=== PATIENT | male | born 1940 | race Caucasian/White ===

== ENCOUNTER 2019-03-08 05:43 | Observation (INO) | payer MEDICARE, OTHER ==
[~2019-03-08] VITALS: Ht 188 cm; Wt 85.0 kg
[2019-03-08] VITALS (32 sets, daily range): BP systolic 107–171; BP diastolic 57–80; PULSE 46–65; RESP 4–30; Ht 188 cm; Wt 85.0 kg
[~2019-03-08 05:43] MED LIST: APIX5TAB PO; ATOR10TA65 PO; BUDE6HFA INHALATION; HYDR-4011 PO
[2019-03-08] MEDS ORDERED: CEFAZOLIN 1 GM/50 ML (PMX) 50 ML IVPB SCH (07:00)
[2019-03-08] MEDS ORDERED: SOD CHLORIDE 0.45% 1,000 ML IV SCH (07:00)
[2019-03-08] MEDS ORDERED: DIAZEPAM 5 MG TAB PO SCH (07:00)
[2019-03-08] MEDS ORDERED: LIDOCAINE 1%/EPI 30 ML INJ ONE (07:18)
[2019-03-08] MEDS ORDERED: CEFAZOLIN 1 GM/50 ML (PMX) 50 ML IVPB ONE ×2 (07:27→07:46)
[2019-03-08] MEDS ORDERED: SOD CHLORIDE 0.9% 500 ML ONE (07:27)
--- NOTE | 2019-03-08 07:27 | PREAC ---
Date/Time of Note Date/Time of Note DATE: 03/08/19 TIME: 07:27 Anesthesia Eval and Record Evaluation Time Pre-Procedure Interview DATE: 03/08/19 TIME: 07:27 Age 79 Sex male NPO: 8 hrs Preoperative diagnosis tachy paroxysmal A fib Planned procedure permanent pace maker placement Past Medical History Past Medical History: Includes Cardio: Dyslipidemia Endo: Diabetes Pulm: COPD Renal: BPH Surgery & Anesthesia Issues No known issue Meds Anticoagulation: Yes (4 days ago) Beta Codie within 24 hr: No Reason Beta Codie not given: Pt. not on B-Codie Reported Medications Budesonide-Formoterol Fumarate* (Symbicort*) 160-4.5 Hfa.aer.ad, 2 PUFF INHALATION BID, #1 EACH 03/08/19 Atorvastatin Calcium (Atorvastatin Calcium) 10 Mg Tablet, 10 MG PO QHS, #30 TAB 03/08/19 Apixaban* (Eliquis*) 5 Mg Tablet, 5 MG PO BID, TAB 03/08/19 Current Medications Sodium Chloride 1,000 ml @ 0 mls/hr Q0M IV ; Start 03/08/19 at 07:00; Stop 03/08/19 at 12:00 Diazepam (Valium) 5 mg PRE-OP PO Last administered on 03/08/19at 07:11; Admin Dose 5 MG; Start 03/08/19 at 07:00; Stop 03/08/19 at 12:00 Cefazolin Sodium 50 ml @ 100 mls/hr PRE-OP IVPB ; Start 03/08/19 at 07:00; Stop 03/08/19 at 12:00 Bacitracin/ Polymyxin B Sulfate (Pb Solution) 1,000 ml ONCE IRR ; Start 03/08/19 at 07:30; Stop 03/08/19 at 12:00 Meds reviewed: Yes Allergies Coded Allergies: erythromycin base (Verified Allergy, Unknown, 03/08/19) Allergies Reviewed: Yes Labs/Studies Labs Reviewed: Reviewed by anesthesiologist Result Diagram: 03/08/1915 03/08/19 0615 Laboratory Tests 03/08/19 06:15 test: N/A Studies: ECG (Afib), CXR (pulmonary hyperinflation,emphysemia) Pre-procedure Exam Last vitals Vital Signs Date Temp Pulse Resp B/P (MAP) Pulse Ox O2 O2 Flow FiO2 Time Delivery Rate 03/08/19 98.0 46 17 107/57 95 Room Air 06:44 (74) Airway: Adequate mouth opening Mallampati: Mallampati I Teeth: Normal Lung: Normal Heart: Normal ASA Physical Status ASA physical status: 3 Emergency: None Planned Anesthetic General/MAC: MAC Planned Pain Management Parenteral pain med Pre-operative Attestations Prior to commencing anesthesia and surgery, the patient was re-evaluated, there was verification of: *The patient's identity *The results of appropriate recent lab work and preoperative vital signs *The above evaluation not changing prior to induction *Anesthetic plan, risk benefits, alternative and complications discussed with patient/family; questions answered; patient/family understands, accepts and wishes to proceed. SHELTON PEMBERTON MD Mar 08, 2019 07:27
[2019-03-08] MEDS ORDERED: POLYMYXIN/BACITRACIN 1L IRRIG IRR SCH (07:30)
[2019-03-08] MEDS ORDERED: PROPOFOL 40 ML ONE (07:38)
[2019-03-08] MEDS ORDERED: FENTAnyl 50 MCG/ML VIAL ONE (07:38)
[2019-03-08] MEDS ORDERED: EPHEDrine 25 MG/5 ML SYG ONE (07:38)
[2019-03-08] MEDS ORDERED: MIDAZOLAM 1 MG/ML 2 ML INJ ONE (07:47)
[2019-03-08] MEDS ORDERED: HYDROmorphONE 1 MG/5 ML IV SYRINGE IV PRN ×3 (08:00)
[2019-03-08] MEDS ORDERED: MEPERIDINE 25 MG INJ IV PRN (08:00)
[2019-03-08] MEDS ORDERED: ONDANSETRON 4 MG INJ IV PRN ×2 (08:00→12:00)
[2019-03-08] MEDS ORDERED: FENTAnyl 50 MCG/ML VIAL IV PRN ×3 (08:00)
[2019-03-08] MEDS ORDERED: DIPHENHYDRAMINE 50 MG INJ IV PRN (08:00)
[2019-03-08] MEDS ORDERED: LABETALOL HCL 20MG INJ IV PRN (08:00)
[2019-03-08] MEDS ORDERED: EPHEDrine 25 MG/5 ML SYG IV PRN (08:00)
[2019-03-08] MEDS ORDERED: OXYCODONE/ACETAMINOPHEN (5/325) TAB PO PRN ×2 (08:00)
[2019-03-08] MEDS ORDERED: hydrALAzine 20 MG INJ IV PRN ×2 (08:00→12:00)
--- NOTE | 2019-03-08 08:30 | SIPON ---
Date/Time of Note Date/Time of Note DATE: 03/08/19 TIME: 08:28 Operative Report Preoperative Diagnosis symptomatic checo. h/o a. fib with tachy checo # [id number] Postoperative Diagnosis same Operation/Procedure Performed DDD [facility] pacer at 60 Surgeon see signature line insurance assistant none Anesthesia: MAC Estimated blood loss: minimal Transfusion Required none Specimen none Grafts/Implants none Complications none KIMBERLY SÁNCHEZ MD Mar 08, 2019 08:29
[2019-03-08] MEDS ORDERED: morphine 2 MG INJ IV PRN (09:00)
[2019-03-08] MEDS ORDERED: HYDROCODONE/APAP (5/325) TAB PO PRN (09:00)
--- NOTE | 2019-03-08 10:33 | SP ---
DATE OF PROCEDURE: 03/08/2019 REFERRING PHYSICIAN: Dr. García. REASON FOR IMPLANTATION: Symptomatic bradycardia, tachybrady syndrome, atrial fibrillation. PROCEDURE PERFORMED: Dual chamber pacemaker placement. INDICATION: A dual chamber placement as patient will benefit from AV synchrony. He is a patient who is ambulatory also hopefully it will help to maintain him in atrial fibrillation. DEVICE INFORMATION: The implanted device is [employer], serial #[id number]. Atrial lead is [employer] Tendril 2088 TC 52 cm, serial number [id number]. RV lead is [facility] [facility] [employer] Tendril 2088 TC 58 cm lead, serial number [id number]. Acute thresholds atrial wave is 1.5 millivolts, impedance 4 60 ohms, threshold 1.25 volts at 0.4 msec. RV lead is 4.5 volts, lead impedance 460 ohms, threshold 0.5 volts at 0.47 msec. DESCRIPTION OF PROCEDURE: The informed consent was obtained, the patient was brought into labor training manager i n a fasting condition. Anesthesiologist supervised airway and sedation. Antibiotics were given prio r to medication. The left side of the chest was prepped and draped in a sterile fashion using local lidocaine injection was given for local analgesia. Using #10 scalpel, a 3 cm incision was made and u sing cautery and blunt dissection, the pocket was created, using modified simple Seldinger technique, subclavian was cannulated and J-wire passed easily. Using split sheath technique, 2 J-wires were in troduced and then RV lead was deposited into RV apex over a 6-Irish sheath. A sleeve was actively f ixed into the apex. Some slack was left inside the lead and the sheath was pulled away. The lead wa s sutured to the muscle layer with 0 Ethibond sutures. Then, in a similar position, atrial lead was deposited in the right atrial appendage. It was actively fixed. The sheath was pulled away and the lead was sutured to the muscle layer with 0 Ethibond. The leads were attached to the generator. The pocket was irrigated with antibiotic solution. Entire system was closed inside the pocket, the skin was dressed. The patient appears to have tolerated the procedure well. He is going to be monitored overnight. Chest x-ray will be to follow. Continue antibiotics. I would like to thank Dr. García for referring this patient for my evaluation. Dictated By: KIMBERLY RUSSELL/BETTY Conf#: [id number] DID#: [id number]
--- NOTE | 2019-03-08 11:51 | HP ---
Date/Time of Note Date/Time of Note DATE: 03/08/19 TIME: 11:47 Assessment/Plan VTE Prophylaxis Risk score (from Ns)>0 risk: 5 SCD applied (from Ns): Yes Pharmacological prophylaxis: NA/contraindicated Pharm contraindication: surgical contra Lines/Catheters IV [facility]from [facility] Peripheral IV Assessment/Plan Hospital Course SUBJECTIVE: Lying in bed comfortably. No acute distress. OBJECTIVE: Vital signs-see below PHYSICAL EXAM: Constitutional: Adequately built,not in acute distress. HEENT: Head atraumatic and normocephalic. Eyes: Extraocular muscles intact. Anicteric sclerae. Pupils equal bilaterally, reactive to light. NECK: Supple without lymph node. CHEST: Left chest with pacemaker placed, dressing C/D/I. Clear and good breath sounds equally. No wheezing. No rhonchi. HEART: S1, S2. Regular rate and rhythm. ABDOMEN: Soft/non tender with no rebound tenderness. Bowel sounds were present. EXTREMITIES: No cyanosis, clubbing or edema. NEUROLOGIC: Alert and oriented x3. No focal deficit. No sensory deficit. PSYCHOSOCIAL: No signs of depression. INTEGUMENTARY: No open wounds. ASSESSMENT AND PLAN:79-year-old male with a history of dyslipidemia, diabetes managed with diet, COPD, was brought in by Dr. Fernández for dual-chamber pacemaker placement for symptomatic bradycardia/tachycardia bradycardia syndrome/atrial fibrillation. Symptomatic bradycardia/tachycardia bradycardia syndrome/atrial fibrillation -Status post dual-chamber pacemaker placed 03/08/2019, [facility] -Postop management per cardiology. -Postop Ancef x24 hours and will determine the need for oral Keflex if needed. -Left arm sling -Hold anticoagulation over 24 to 48 hours. DM2 -Managed with diet. Obtain A1c. -Basal/bolus insulin to keep blood sugar under desired goal range to prevent postop infections. Dyslipidemia -Resume statin DVT prophylaxis: SCDs PUD prophylaxis: H2 blockers Approximately 60 m spent on this history and physical. Patient was seen in collaboration with Dr. Hendricks. Result Diagram: 03/08/19 0615 03/08/19 0615 Results 24hrs Laboratory Tests Test 03/08/19 06:11 03/08/19 06:15 Bedside Glucose 129 White Blood Count 5.5 Red Blood Count 4.16 L Hemoglobin 13.6 L Hematocrit 40.5 L Mean Corpuscular Volume 97.4 Mean Corpuscular Hemoglobin 32.7 Mean Corpuscular Hemoglobin Concent 33.6 Red Cell Distribution Width 12.3 Platelet Count 171 Mean Platelet Volume 10.3 Immature Granulocytes % 0.200 Neutrophils % 53.9 Lymphocytes % 34.1 Monocytes % 9.5 Eosinophils % 1.8 Basophils % 0.5 Nucleated Red Blood Cells % 0.0 Immature Granulocytes # 0.010 Neutrophils # 3.0 Lymphocytes # 1.9 Monocytes # 0.5 Eosinophils # 0.1 Basophils # 0.0 Nucleated Red Blood Cells # 0.0 Prothrombin Time 13.9 Prothrombin Time Ratio 1.1 INR International Normalized Ratio 1.06 Activated Partial Thromboplast Time 27.3 Sodium Level 142 Potassium Level 3.9 Chloride Level 104 Carbon Dioxide Level 32 H Anion Gap 6 Blood Urea Nitrogen 16 Creatinine 0.93 Est Glomerular Filtrat Rate mL/min Glucose Level 135 Calcium Level 9.6 Total Bilirubin 0.8 Direct Bilirubin 0.00 Indirect Bilirubin 0.8 Aspartate Amino Transf (AST/SGOT) 30 Alanine Aminotransferase (ALT/SGPT) 40 Alkaline Phosphatase 86 Total Protein 7.6 Albumin 4.3 Globulin 3.30 H Albumin/Globulin Ratio 1.30 HPI/ROS Admit Date/Time Admit Date/Time Hx of Present Illness This is a 79-year-old male with a history of dyslipidemia, diabetes managed with diet, COPD, was brought in by Dr. Fernández for dual-chamber pacemaker placement for symptomatic bradycardia/tachycardia bradycardia syndrome/atrial fibrillation. Patient underwent [facility] implanted dual-chamber pacemaker on 03/08/2019. Postoperatively, patient denied chest pain, palpitation, shortness of breath, nausea, dizziness, vomiting, headache, abdominal pain, loss of consciousness, numbness, tingling, palpitation, speech difficulties, vision changes or other constitutional symptoms. Vital signs stable except for blood pressure 153/72. Labs stable. ROS A 12 point review of system was assessed and is negative other than what is mentioned in HPI. PMH/Family/Social Past Medical History See HPI Medications Current Medications Sodium Chloride 1,000 ml @ 0 mls/hr Q0M IV ; Start 03/08/19 at 07:00; Stop 03/08/19 at 12:00 Diazepam (Valium) 5 mg PRE-OP PO Last administered on 03/08/19at 07:11; Admin Dose 5 MG; Start 03/08/19 at 07:00; Stop 03/08/19 at 12:00 Cefazolin Sodium 50 ml @ 100 mls/hr PRE-OP IVPB ; Start 03/08/19 at 07:00; Stop 03/08/19 at 12:00 Bacitracin/ Polymyxin B Sulfate (Pb Solution) 1,000 ml ONCE IRR ; Start 03/08/19 at 07:30; Stop 03/08/19 at 12:00 Hydromorphone HCl (Dilaudid) 0.2 mg PACU PRN IV MILD PAIN 1-3; Start 03/08/19 at 08:00; Stop 03/08/19 at 13:00 Hydromorphone HCl (Dilaudid) 0.4 mg PACU PRN IV MOD PAIN 4-6 Last administered on 03/08/19at 10:07; Admin Dose 0.4 MG; Start 03/08/19 at 08:00; Stop 03/08/19 at 13:00 Hydromorphone HCl (Dilaudid) 0.6 mg PACU PRN IV SEVERE PAIN 7-10; Start 03/08/19 at 08:00; Stop 03/08/19 at 13:00 Fentanyl (Sublimaze) 25 mcg PACU ORDER PRN IV MILD PAIN 1-3; Start 03/08/19 at 08:00; Stop 03/08/19 at 13:00 Fentanyl (Sublimaze) 50 mcg PACU ORDER PRN IV MOD PAIN 4-6; Start 03/08/19 at 08:00; Stop 03/08/19 at 13:00 Fentanyl (Sublimaze) 75 mcg PACU ORDER PRN IV SEVERE PAIN 7-10; Start 03/08/19 at 08:00; Stop 03/08/19 at 13:00 Oxycodone/ Acetaminophen (Percocet (5/ 325)) 1 tab PACU ORDER PRN PO .PAIN 1-5; Start 03/08/19 at 08:00; Stop 03/08/19 at 13:00 Oxycodone/ Acetaminophen (Percocet (5/ 325)) 2 tab PACU ORDER PRN PO .PAIN 6-10; Start 03/08/19 at 08:00; Stop 03/08/19 at 13:00 Ondansetron HCl (Zofran Inj) 4 mg PACU ORDER PRN IV NAUSEA/VOMITING; Start 03/08/19 at 08:00; Stop 03/08/19 at 13:00 Labetalol HCl (Labetalol) 5 mg PACU ORDER PRN IV HIGH BLOOD PRESSURE; Start 03/08/19 at 08:00; Stop 03/08/19 at 13:00 Hydralazine HCl (Apresoline) 5 mg PACU ORDER PRN IV HIGH BLOOD PRESSURE; Start 03/08/19 at 08:00; Stop 03/08/19 at 13:00 Ephedrine Sulfate 5 mg PACU ORDER PRN IV BLOOD PRESSURE SUPPORT; Start 03/08/19 at 08:00; Stop 03/08/19 at 13:00 Meperidine HCl (Demerol) 25 mg PACU ORDER PRN IV .RIGORS; Start 03/08/19 at 08:00; Stop 03/08/19 at 13:00 Diphenhydramine HCl (Benadryl) 25 mg PACU ORDER PRN IV .PRURITUS; Start 03/08/19 at 08:00; Stop 03/08/19 at 13:00 Cefazolin Sodium 50 ml @ 100 mls/hr Q8 IVPB ; Start 03/08/19 at 14:00 Morphine Sulfate (morphine) 2 mg Q3H PRN IV SEVERE PAIN LEVEL 7-10; Start 03/08/19 at 09:00 Acetaminophen/ Hydrocodone Bitart ([place] (5/325)) 1 tab Q6H PRN PO MODERATE PAIN LEVEL 4-6; Start 03/08/19 at 09:00 IV Flush (NS 3 ml) 3 ml PER PROTOCOL IV ; Start 03/08/19 at 12:00 Ondansetron HCl (Zofran Inj) 4 mg Q6H PRN IV NAUSEA/VOMITING; Start 03/08/19 at 12:00 Acetaminophen (Tylenol Tab) 650 mg Q6H PRN PO .PAIN 1-3 OR TEMP; Start 03/08/19 at 12:00 Docusate Sodium (Colace) 100 mg Q12H PRN PO .CONSTIPATION; Start 03/08/19 at 12:00 Famotidine (Pepcid) 20 mg Q12 PO ; Start 03/08/19 at 21:00 Miscellaneous Information (* Miscellaneous Pharmacy Order) Discontinue current oral sulfonylur... ONCE ONCE XX ; Start 03/08/19 at 12:00; Stop 03/08/19 at 12:01; Status UNV Diagnostic Test (Pha) (Accu-Chek) 1 ea XX ; Start 03/09/19 at 02:00; Status UNV Miscellaneous Information (* Miscellaneous Pharmacy Order) HYPOGLYCEMIA PROTOCOL w... ONCE ONCE XX ; Start 03/08/19 at 12:00; Stop 03/08/19 at 12:01; Status UNV Insulin Aspart (Novolog Insulin Pen) NOVOLOG *MILD* ALGORITHM WITH MEALS BEDTIME SC ; Start 03/08/19 at 12:00; Status UNV Miscellaneous Information (* Miscellaneous Pharmacy Order) Discontinue all previ... ONCE ONCE XX ; Start 03/08/19 at 12:00; Stop 03/08/19 at 12:01; Status UNV Insulin Glargine (Lantus) 10 units DAILY@0800 SC ; Start 03/08/19 at 12:00; Status UNV Coded Allergies: erythromycin base (Verified Allergy, Unknown, 03/08/19) Past Surgical History See HPI Social History Denied history of alcohol, smoking or illicit drug use. Smoking Status: Never smoker Exam/Review of Systems Vital Signs Vitals Vital Signs Date Temp Pulse Resp B/P (MAP) Pulse Ox O2 O2 Flow FiO2 Time Delivery Rate 03/08/19 14 153/72 99 Room Air 09:29 (99) 03/08/19 97.5 57 08:41 WESLEY PATTERSON NP Mar 08, 2019 11:51
[2019-03-08] MEDS ORDERED: DOCUSATE SODIUM 100 MG CAP PO PRN (12:00)
[2019-03-08] MEDS ORDERED: GLUCOSE GEL 15 GRAM TUBE PO PRN ×2 (12:00)
[2019-03-08] MEDS ORDERED: ACETAMINOPHEN 325 MG TAB PO PRN (12:00)
[2019-03-08] MEDS ORDERED: GLUCOSE GEL 15 GRAM TUBE BUCCAL PRN (12:00)
[2019-03-08] MEDS ORDERED: GLUCAGON 1 MG INJ IM PRN (12:00)
[2019-03-08] MEDS ORDERED: NACL 0.9% 3 ML SYG IV SCH (12:00)
[2019-03-08] MEDS ORDERED: DEXTROSE 50% 50 ML SYRINGE IV PRN ×2 (12:00)
[2019-03-08] MEDS: CEFAZOLIN 1 GM/50 ML (PMX) 50 ML IVPB SCH ×2 (17:00→21:46)
[2019-03-08] MEDS: INSULIN GLARGINE [LANTus] (100 UNITS/ML) SYG SC SCH (17:38)
[2019-03-08] MEDS: INSULIN ASPART [NOVOLOG] 3 ML PEN SC SCH ×3 (17:38→21:00)
[2019-03-08] MEDS ORDERED: ATORVASTATIN 10 MG TAB PO SCH (21:00)
[2019-03-08] MEDS: FAMOTIDINE 20 MG TAB PO SCH (21:46)
[2019-03-09] MEDS ORDERED: ACCU-CHEK XX SCH (02:00)
[2019-03-09 03:53] VITALS: BP 155/67; PULSE 60; RESP 20
[2019-03-09] MEDS: CEFAZOLIN 1 GM/50 ML (PMX) 50 ML IVPB SCH ×2 (05:19→14:14)
[2019-03-09] MEDS: INSULIN ASPART [NOVOLOG] 3 ML PEN SC SCH ×2 (07:55→11:50)
[2019-03-09 08:03] VITALS: BP 142/67; PULSE 60; RESP 19
[2019-03-09] MEDS: FAMOTIDINE 20 MG TAB PO SCH (08:06)
--- NOTE | 2019-03-09 08:07 | PAC ---
Date/Time of Note Date/Time of Note DATE: 03/09/19 TIME: 08:06 Post-Anesthesia Notes Post-Anesthesia Note Last documented vital signs Vital Signs Date Temp Pulse Resp B/P (MAP) Pulse Ox O2 O2 Flow FiO2 Time Delivery Rate 03/09/19 98.3 60 19 142/67 97 08:03 (92) 03/08/19 Room Air 17:20 Activity: WNL Respiratory function: WNL Cardiovascular function: WNL Mental status: Baseline Pain reasonably controlled: Yes Hydration appropriate: Yes Nausea/Vomiting absent: No SHELTON PEMBERTON MD Mar 09, 2019 08:07
[2019-03-09] MEDS: INSULIN GLARGINE [LANTus] (100 UNITS/ML) SYG SC SCH (08:12)
[2019-03-09] MEDS ORDERED: FLUTICASONE/VILANTEROL 200-25 INH DEVICE INH SCH (09:00)
--- NOTE | 2019-03-09 11:21 | PDOCDIS ---
Discharge Instructions CONDITION [id number] Patient Condition: [id number] Stable HOME CARE INSTRUCTIONS: [id number] Your diet recommendation is: [id number] Carbohydrate controlled/low-cholesterol diet FOLLOW UP/APPOINTMENTS Follow-up Plan Follow-up with Jesus Santizo MD in 5 days Specialty Interventional Cardiology Comments Per Dr. Toro - do not use his personal email for any correspondence. Email Art and he'll forward it to Dr. Toro. Office Address [address] [place] [id number] Office Follow-up with primary care physician in 1 week If you notice fever, redness around pacemaker site, please call lube worker office or come back to the emergency room. WESLEY PATTERSON NP Mar 09, 2019 11:21
--- NOTE | 2019-03-09 11:29 | DS ---
Date/Time of Note Date/Time of Note DATE: 03/09/19 TIME: 11:28 Discharge Summary Admission/Discharge Info Admit Date/Time Mar 08, 2019 at 11:39 Discharge Date/Time Discharge Diagnosis Symptomatic bradycardia/tachycardia bradycardia syndrome/atrial fibrillation -Status post dual-chamber pacemaker placed 03/08/2019, [facility] DM2 Dyslipidemia Patient Condition: Stable Consults Procedures [employer] implanted dual-chamber pacemaker on 03/08/2019. Hx of Present Illness This is a 79-year-old male with a history of dyslipidemia, diabetes managed with diet, COPD, was brought in by Dr. Fernández for dual-chamber pacemaker placement for symptomatic bradycardia/tachycardia bradycardia syndrome/atrial fibrillation. Patient underwent [facility] implanted dual-chamber pacemaker on 03/08/2019. Postoperatively, patient denied chest pain, palpitation, shortness of breath, nausea, dizziness, vomiting, headache, abdominal pain, loss of consciousness, numbness, tingling, palpitation, speech difficulties, vision changes or other constitutional symptoms. Vital signs stable except for blood pressure 153/72. Labs stable. Hospital Course 79-year-old male with a history of dyslipidemia, diabetes managed with diet, COPD, was brought in by Dr. Fernández for dual-chamber pacemaker placement for symp tomatic bradycardia/tachycardia bradycardia syndrome/atrial fibrillation. Patient did well after pacemaker placed. Pacemaker was interrogated on 03/09/2019 with good function. Patient remained in atrial paced rhythm. Patient was noted with controlled diabetes with A1c 6.4 and stable blood sugar. Patient was encouraged to continue diet regimen which he is already on for a while. He was continued on statin for dyslipidemia. Patient was also noted with borderline high blood pressure likely secondary to postoperative changes and most likely pain induced. Patient was advised to take pain medication for pacemaker site. There was no evidence of fevers or redness around the site. Patient completed postoperative prophylactic antibiotic course and per Dr. Terrence meza, there is no need to continue further antibiotic regimen on discharge. Patient to follow-up with Dr. Toro in 5 days. Approximately 60-minute was spent on coordinating the discharge on this patient. Patient was seen in collaboration with Dr. Hendricks. Home Meds Reported Medications Budesonide-Formoterol Fumarate* (Symbicort*) 160-4.5 Hfa.aer.ad, 2 PUFF INH ALATION BID, #1 EACH 03/08/19 Atorvastatin Calcium (Atorvastatin Calcium) 10 Mg Tablet, 10 MG PO QHS, #30 TAB 03/08/19 Apixaban* (Eliquis*) 5 Mg Tablet, 5 MG PO BID, TAB 03/08/19 Follow-up Plan Follow-up with Jesus Santizo MD in 5 days Specialty Interventional Cardiology Comments Per Dr. Toro - do not use his personal email for any correspondence. Email Art and he'll forward it to Dr. Toro. Office Address [address] [place] [id number] Office Follow-up with primary care physician in 1 week If you notice fever, redness around pacemaker site, please call wood chopper office or come back to the emergency room. Primary Care Provider Not On Staff Doctor Pending Labs Laboratory Tests Test 03/08/19 17:47 03/08/19 21:08 03/09/19 08:05 Bedside Glucose 92 mg/dL (70-220) 162 mg/dL (70-220) 100 mg/dL (70-220) WESLEY PATTERSON NP Mar 09, 2019 11:29
[2019-03-09 11:31] VITALS: BP 134/65; PULSE 60; RESP 19
[2019-03-09 14:59] VITALS: BP 138/62; PULSE 62; RESP 19
--- NOTE | 2019-03-09 15:44 | CONS ---
Assessment/Plan Assessment/Plan Hospital Course (Demo Recall) IMP: 1.Bradycardia s/p PPM POD#1 2.PAF 3.Dyslipidemia 4.DM Recc: -on Tele -Pain control -continue statin -can resume eliquis as outpatient and will likely require initiation of antihypertensives -OK for d/c with outpatient f/u [address] de la garza for wound check Consultation Date/Type/Reason Admit Date/Time Mar 08, 2019 at 11:39 Initial Consult Date 03/08/19 Type of Consult Cardiology Reason for Consultation Bradycardia s/p PPM Requesting Provider: WESLEY PATTERSON NP Date/Time of Note DATE: 03/09/19 TIME: 15:38 Exam/Review of Systems Vital Signs Vitals Vital Signs Date Temp Pulse Resp B/P (MAP) Pulse Ox O2 O2 Flow FiO2 Time Delivery Rate 03/09/19 97.7 62 19 138/62 98 14:59 (87) 03/08/19 Room Air 17:20 Intake and Output 03/08/19 03/08/19 03/09/19 1515:00 23:00 07:00 IntakeIntake Total 50 ml 50 ml BalanceBalance 50 ml 50 ml Exam Exam Review of Systems: CONSTITUTIONAL: No fevers, chills. PULMONARY: No sob CARDIOVASCULAR: No chest pain/palpitations GASTROINTESTINAL: No nausea/vomiting. GENITOURINARY: No hematuria/dysuria. MUSCULOSKELETAL: No myagias/arthalgias. PSYCHIATRIC: The patient denies depression. NEUROLOGIC: No weakness Constitutional: alert, oriented Psych: no complaints Head: normocephalic ENMT: mucosa pink and moist Neck: supple, jvd (9 cm water) Respiratory: clear to auscultation Cardiovascular: regular rate and rhythm Gastrointestinal: soft, non-tender Musculoskeletal: muscle tone (normal) Extremities: edema (no focal deficits) Labs Result Diagram: 03/08/19 0615 03/08/19 0615 Results 24hrs Laboratory Tests Test 03/08/19 17:47 03/08/19 21:08 03/09/19 08:05 03/09/19 12:00 Bedside Glucose 92 162 100 134 Medications Medications Current Medications Cefazolin Sodium 50 ml @ 100 mls/hr Q8 IVPB Last administered on 03/09/19at 14:14; Admin Dose 100 MLS/HR; Start 03/08/19 at 14:00 Morphine Sulfate (morphine) 2 mg Q3H PRN IV SEVERE PAIN LEVEL 7-10; Start 03/08/19 at 09:00 Acetaminophen/ Hydrocodone Bitart ([place] (5/325)) 1 tab Q6H PRN PO MODERATE PAIN LEVEL 4-6; Start 03/08/19 at 09:00 IV Flush (NS 3 ml) 3 ml PER PROTOCOL IV ; Start 03/08/19 at 12:00 Ondansetron HCl (Zofran Inj) 4 mg Q6H PRN IV NAUSEA/VOMITING; Start 03/08/19 at 12:00 Acetaminophen (Tylenol Tab) 650 mg Q6H PRN PO .PAIN 1-3 OR TEMP; Start 03/08/19 at 12:00 Docusate Sodium (Colace) 100 mg Q12H PRN PO .CONSTIPATION; Start 03/08/19 at 12:00 Famotidine (Pepcid) 20 mg Q12 PO Last administered on 03/09/19at 08:06; Admin Dose 20 MG; Start 03/08/19 at 21:00 Diagnostic Test (Pha) (Accu-Chek) 1 ea 02 XX ; Start 03/09/19 at 02:00 Insulin Aspart (Novolog Insulin Pen) NOVOLOG *MILD* ALGORITHM WITH MEALS BEDTIME SC ; Start 03/08/19 at 12:00 Insulin Glargine (Lantus) 10 units DAILY@0800 SC Last administered on 03/09/19at 08:12; Admin Dose 10 UNITS; Start 03/08/19 at 12:00 Atorvastatin Calcium (Lipitor) 10 mg QHS PO Last administered on 03/08/19at 21:46; Admin Dose 10 MG; Start 03/08/19 at 21:00 Fluticasone/ Vilanterol (Breo Ellipta 200-25 Mcg Inh) 1 inh DAILY INH Last administered on 03/09/19at 08:07; Admin Dose 1 INH; Start 03/09/19 at 09:00 Hydralazine HCl (Apresoline) 10 mg Q6H PRN IV SBP>160 Last administered on 03/08/19at 17:49; Admin Dose 10 MG; Start 03/08/19 at 12:00 Miscellaneous Information 1 ea NOTE XX ; Start 03/08/19 at 12:00 Glucose (Glutose) 15 gm Q15M PRN PO DECREASED GLUCOSE; Start 03/08/19 at 12:00 Glucose (Glutose) 22.5 gm Q15M PRN PO DECREASED GLUCOSE; Start 03/08/19 at 12:00 Dextrose (D50w Syringe) 25 ml Q15M PRN IV DECREASED GLUCOSE; Start 03/08/19 at 12:00 Dextrose (D50w Syringe) 50 ml Q15M PRN IV DECREASED GLUCOSE; Start 03/08/19 at 12:00 Glucagon (Glucagen) 1 mg Q15M PRN IM DECREASED GLUCOSE; Start 03/08/19 at 12:00 Glucose (Glutose) 15 gm Q15M PRN BUCCAL DECREASED GLUCOSE; Start 03/08/19 at 12:00 EL OLSON Mar 09, 2019 15:44
--- NOTE | 2019-03-09 17:19 | RADRPT ---
Vent Rate: 43 bpm RR Interval: 1392 msec [place] Interval: 200 msec QRS Duration: 104 msec QT Interval: 472 msec QTC Interval: 400 msec P-R-T [place]: 0 - 78 - 77 degrees Sinus bradycardia...rate< 50 Electronically Signed By: Chauncey Metcalf
--- NOTE | 2019-03-09 17:19 | RADRPT ---
Vent Rate: 61 bpm RR Interval: 982 msec [place] Interval: 270 msec QRS Duration: 91 msec QT Interval: 439 msec QTC Interval: 443 msec P-R-T [place]: [id number] - 74 - 67 degrees Atrial-paced complexes...other complexes also detected Prolonged CA interval...CA >220, V-rate 50- 90 Electronically Signed By: Chauncey Metcalf
== END 2019-03-09 16:30 | disposition home or self-care (01) ==
LOC: SDS 05:43 → REC 11:39 → TEL 17:14
PROVIDERS: ADMIT Internal Medicine Clinical Cardiac Electrophysiology; ATTEND Internal Medicine Clinical Cardiac Electrophysiology
DX: I49.5 Sick sinus syndrome (principal); I48.91 Unspecified atrial fibrillation; E78.5 Hyperlipidemia, unspecified; E11.9 Type 2 diabetes mellitus without complications; J44.9 Chronic obstructive pulmonary disease, unspecified
CPT/HCPCS: 33208; 71045; 80053; 80061; 82962; 83036; 85025; 85610; 85730; 93005; C1785; C1898; G0378; J0360; J0690; J1170; J1815; J2250; J7040; 99217; J3010